=== PATIENT | female | born 1950 | race Caucasian/White ===

== ENCOUNTER 2022-08-19 01:40 | Day surgery (SDC) | payer MEDICARE, SELFPAY ==
[2022-08-09 13:46] VITALS: BMI 34.1
--- NOTE | 2022-08-18 14:57 | PM.HPGS ---
History of Present Illness History of Present Illness Consent: Risks, benefits, and alternatives have been discussed and questions answered. Patient agrees to proceed with procedure. Chief complaint: neoplasm screening, dyspahgia Narrative: Jocelyne Juan is a 72 year old female Referred for investigation of dysphagia and for colon cancer screening. Her last colonoscopy was 11 years ago. She has a history of having a Schatzki's ring which was last dilated about 6 years ago. Review of Systems Review of Systems: All systems reviewed & are unremarkable except as noted in HPI and below PMFSH Surgical History Surgical History H/O knee surgery Family History Family History Sibling Family history of kidney disease Father Family history of diabetes mellitus in first degree relative Patient's father is Acute myocardial infarction Mother Family history of lymphoma Patient's mother is in good health, Onset Age: 86 Social History Social History Smoking status: Never smoker Second hand tobacco smoke exposure: No Alcohol intake: never Living arrangements: with family Meds Home Medications and Allergies Home Medications Medication Instructions Recorded Confirmed Type calcium carbonate 600 mg calcium 600 mg PO DAILY 09/18/20 08/19/22 History (1,500 mg) tablet cholecalciferol (vitamin D3) 25 25 mcg PO DAILY 09/18/20 08/19/22 History mcg (1,000 unit) capsule levothyroxine 137 mcg tablet 137 mcg PO DAILY 09/18/20 08/19/22 History (Levoxyl) multivitamin 1 tablet PO DAILY 09/18/20 08/19/22 History ergocalciferol (vitamin D2) 1,250 50,000 unit PO 3XW #18 caps 04/12/21 08/19/22 Rx mcg (50,000 unit) capsule pantoprazole 40 mg tablet,delayed 40 mg PO QAM #90 tabs 02/17/22 08/19/22 Rx release lisinopril 20 mg tablet 20 mg PO DAILY #90 tabs 05/13/22 08/19/22 Rx Allergies Allergy/AdvReac Type Severity Reaction Status Date / Time No Known Allergies Allergy Verified 08/19/22 07:00 Exam Const: General: alert Orientation/consciousness: patient oriented x3 Resp: Auscultation: clear to auscultation bilaterally Cardio: Rhythm: regular rhythm GI: GI Palp: Yes Soft to palpation and No Tenderness to palpation present (GI) Neuro: General: patient oriented x3 Assessment and Plan Assessment and plan (1) Dysphagia: Code(s): R13.10 - Dysphagia, unspecified Status: Acute Assessment and Plan: EGD with possible biopsy or dilatation or cautery. (2) Colon cancer screening: Code(s): Z12.11 - Encounter for screening for malignant neoplasm of colon Status: Acute Assessment and Plan: Colonoscopy with possible biopsy or polypectomy or cautery or injection of substances.
[2022-08-19 07:02] VITALS: BP 153/78; PULSE 92; RESP 18; TEMP 36.7; O2SAT 95; BMI 38.0
[2022-08-19] MEDS: LACTATED RINGERS 1,000 ML 150 ML IV CONT (07:33)
--- NOTE | 2022-08-19 07:41 | P.PNAN_ITS ---
Anes - Initial Pre Proc Eval Procedure: Operation Date: 08/19/22 08:00 Proposed Procedures p Esophagogastroduodenoscopy&Screen Colon - Natan Costa MD Date/Time: 08/19/22 07:41 Surgeon: Natan Costa MD Pre Op Diagnosis: neoplasm screening, dyspahgia Patient Data Age: 72 Gender: F Height: 1.57 m Weight: 94.3 kg Last Vital Signs Temp 98.0 F 08/19/22 07:02 Pulse 92 08/19/22 07:02 Resp 18 08/19/22 07:02 BP 153/78 H 08/19/22 07:02 Pulse Ox 95 08/19/22 07:02 Allergies Allergy/AdvReac Type Severity Reaction Status Date / Time No Known Allergies Allergy Verified 08/19/22 07:00 Home Medications Medication Instructions Recorded Confirmed Type calcium carbonate 600 mg calcium 600 mg PO DAILY 09/18/20 08/19/22 History (1,500 mg) tablet cholecalciferol (vitamin D3) 25 25 mcg PO DAILY 09/18/20 08/19/22 History mcg (1,000 unit) capsule levothyroxine 137 mcg tablet 137 mcg PO DAILY 09/18/20 08/19/22 History (Levoxyl) multivitamin 1 tablet PO DAILY 09/18/20 08/19/22 History ergocalciferol (vitamin D2) 1,250 50,000 unit PO 3XW #18 caps 04/12/21 08/19/22 Rx mcg (50,000 unit) capsule pantoprazole 40 mg tablet,delayed 40 mg PO QAM #90 tabs 02/17/22 08/19/22 Rx release lisinopril 20 mg tablet 20 mg PO DAILY #90 tabs 05/13/22 08/19/22 Rx Patient hx anesthesia problems: none Family hx anesthesia problems: none Results Review: All pre-operative results and documents have been reviewed as part of the pre- operative evaluation. [facility] Surgical History Surgical History H/O knee surgery Family History Family History Sibling Family history of kidney disease Father Family history of diabetes mellitus in first degree relative Patient's father is Acute myocardial infarction Mother Family history of lymphoma Patient's mother is in good health, Onset Age: 86 Social History Social History Smoking status: Never smoker Second hand tobacco smoke exposure: No Alcohol intake: never Living arrangements: with family Anes - Evdaina Final PreProcedure Day of Procedure 08/19/22 07:41 Patient weight: obese Heart: regular rate and rhythm Lungs: clear to auscultation Airway: Mallampati scale class II Neurological: alert and oriented Last oral intake: >/= 8 hours ASA classification: III Emergent: no Anesthetic plan: proceed Anesthesia type and monitoring: general GIVS and standard monitoring Results Review: All pre-operative results and documents have been reviewed as part of the pre- operative evaluation. Informed Consent: The patient's anesthetic plan and its attendant risks and benefits were discussed with the patient/family/POA. Questions were solicited and answers provided to the satisfaction of the patient/family/POA.
--- NOTE | 2022-08-19 08:19 | SUR.OPER ---
EGD ended at 811. Colonoscopy started at 818.
[2022-08-19] MEDS: SIMETHICONE ORAL SUSPENSION 20 MG/0.3 ML 30 ML BOTTLE 0.6 ML IRRIGATION (08:24)
[2022-08-19 08:32] VITALS: BP 144/73; PULSE 85; RESP 21; O2SAT 100
[2022-08-19 08:42] VITALS: BP 146/82; PULSE 77; RESP 24; O2SAT 95
[2022-08-19 08:52] VITALS: BP 150/61; PULSE 68; RESP 21; O2SAT 98
== END 2022-08-19 09:04 | disposition home or self-care (01) ==
PROVIDERS: PCP Internal Medicine; Visit Provider Internal Medicine Gastroenterology
PROC: 0DJ08ZZ Inspection of Upper Intestinal Tract, Via Natural or Artificial Opening Endoscopic (ICD-10-PCS; CPT 43235; principal; 2022-08-19 08:00)
DX: Z12.11 Encounter for screening for malignant neoplasm of colon (principal); R13.10 Dysphagia, unspecified; K22.2 Esophageal obstruction; K44.9 Diaphragmatic hernia without obstruction or gangrene; K57.30 Diverticulosis of large intestine without perforation or abscess without bleeding
CPT/HCPCS: 43239; 43249; G0121; 88305; J2704; J7120

== ENCOUNTER 2023-01-12 08:02 | Day surgery (SDC) | payer MEDICARE, SELFPAY ==
[2022-11-29 13:29] VITALS: BMI 38.0
--- NOTE | 2023-01-11 11:57 | WPDANESEPPF ---
Anes - Initial Pre Proc Eval Procedure: Operation Date: 01/12/23 09:30 Proposed Procedures p Esophagogastroduodenoscopy - Natan Costa MD Date/Time: 01/11/23 11:57 Surgeon: Natan Costa MD Pre Op Diagnosis: Dysphagia Patient Data Age: 72 Gender: F Height: 1.57 m Weight: 93.894 kg Allergies Allergy/AdvReac Type Severity Reaction Status Date / Time No Known Allergies Allergy Verified 01/03/23 09:49 Home Medications Medication Instructions Recorded Confirmed Type calcium carbonate 600 mg calcium 600 mg PO DAILY 09/18/20 01/03/23 History (1,500 mg) tablet cholecalciferol (vitamin D3) 25 25 mcg PO DAILY 09/18/20 01/03/23 History mcg (1,000 unit) capsule levothyroxine 137 mcg tablet 137 mcg PO DAILY 09/18/20 01/03/23 History (Levoxyl) multivitamin 1 tablet PO DAILY 09/18/20 01/03/23 History lisinopril 20 mg tablet 20 mg PO DAILY #90 tabs 10/27/22 01/03/23 Rx pantoprazole 40 mg tablet,delayed 40 mg PO QAM #30 tabs 12/02/22 01/03/23 Rx release Patient hx anesthesia problems: none Family hx anesthesia problems: none Results Review: All pre-operative results and documents have been reviewed as part of the pre-operative evaluation. [facility] Past Medical History Medical History (Updated 01/11/23 @ 11:58 by Ronnell Holguin MD) Esophageal reflux disease Essential (primary) hypertension Obesity Surgical History Surgical History H/O knee surgery Family History Family History Sibling Family history of kidney disease Father Family history of diabetes mellitus in first degree relative Patient's father is Acute myocardial infarction Mother Family history of lymphoma Patient's mother is in good health, Onset Age: 86 Social History Social History (Updated 01/03/23 @ 09:49 by Cortes Gutiérrez MA) Smoking status: Never smoker Second hand tobacco smoke exposure: No Alcohol intake: never Substance use: never Substance use type: does not use Lack of Transportation: No Lack of Food: Never True Current Housing: I Have Housing Concerned About Future Housing: No Difficulty Paying Gas/Electric Bills: No Difficulty Paying for Meds: No Currently Unemployed: No Education: Bachelor's Degree Difficulty w/ Childcare or Family Care: No Living arrangements: with family Spiritual care concerns: No Anes - Eval Final PreProcedure Day of Procedure 01/11/23 11:57 Patient weight: obese Heart: regular rate and rhythm Lungs: clear to auscultation Airway: Mallampati scale class II Neurological: alert and oriented Last oral intake: >/= 8 hours ASA classification: III Emergent: no Anesthetic plan: proceed Anesthesia type and monitoring: general GIVS and standard monitoring Results Review: All pre-operative results and documents have been reviewed as part of the pre-operative evaluation. Informed Consent: The patient's anesthetic plan and its attendant risks and benefits were discussed with the patient/family/POA. Questions were solicited and answers provided to the satisfaction of the patient/family/POA.
--- NOTE | 2023-01-11 12:10 | PM.HPGS ---
History of Present Illness History of Present Illness Consent: Risks, benefits, and alternatives have been discussed and questions answered. Patient agrees to proceed with procedure. Chief complaint: Dysphagia Narrative: Jocelyne Juan is a 72 year old female GI for solid food. Five months ago she had an EGD that revealed severe stricture at the gastroesophageal junction. It was dilated then up to 16.5 mm. Although improved, she is still having symptoms. Review of Systems Review of Systems: All systems reviewed & are unremarkable except as noted in HPI and below PMFSH Past Medical History Medical History Esophageal reflux disease Essential (primary) hypertension Obesity Surgical History Surgical History H/O knee surgery Family History Family History Sibling Family history of kidney disease Father Family history of diabetes mellitus in first degree relative Patient's father is Acute myocardial infarction Mother Family history of lymphoma Patient's mother is in good health, Onset Age: 86 Social History Social History (Updated 01/03/23 @ 09:49 by Cortes Gutiérrez MA) Smoking status: Never smoker Second hand tobacco smoke exposure: No Alcohol intake: never Substance use: never Substance use type: does not use Lack of Transportation: No Lack of Food: Never True Current Housing: I Have Housing Concerned About Future Housing: No Difficulty Paying Gas/Electric Bills: No Difficulty Paying for Meds: No Currently Unemployed: No Education: Bachelor's Degree Difficulty w/ Childcare or Family Care: No Living arrangements: with family Spiritual care concerns: No Meds Home Medications and Allergies Home Medications Medication Instructions Recorded Confirmed Type calcium carbonate 600 mg calcium 600 mg PO DAILY 09/18/20 01/12/23 History (1,500 mg) tablet cholecalciferol (vitamin D3) 25 25 mcg PO DAILY 09/18/20 01/12/23 History mcg (1,000 unit) capsule levothyroxine 137 mcg tablet 137 mcg PO DAILY 09/18/20 01/12/23 History (Levoxyl) multivitamin 1 tablet PO DAILY 09/18/20 01/12/23 History lisinopril 20 mg tablet 20 mg PO DAILY #90 tabs 10/27/22 01/12/23 Rx pantoprazole 40 mg tablet,delayed 40 mg PO QAM #30 tabs 12/02/22 01/12/23 Rx release Allergies Allergy/AdvReac Type Severity Reaction Status Date / Time No Known Allergies Allergy Verified 01/12/23 09:02 Exam Const: General: alert Orientation/consciousness: patient oriented x3 Resp: Auscultation: clear to auscultation bilaterally Cardio: Rhythm: regular rhythm GI: GI Palp: Yes Soft to palpation and No Tenderness to palpation present (GI) Neuro: General: patient oriented x3 Assessment and Plan Assessment and plan (1) Dysphagia: Code(s): R13.10 - Dysphagia, unspecified Status: Acute Assessment and Plan: EGD with possible biopsy or dilatation or cautery.
[2023-01-12 08:35] VITALS: BP 147/75; PULSE 74; RESP 20; TEMP 36.7; O2SAT 99
[2023-01-12] MEDS: LACTATED RINGERS 1,000 ML 150 ML IV CONT (09:06)
[2023-01-12 10:00] VITALS: BP 122/53; PULSE 77; RESP 15; O2SAT 95
[2023-01-12 10:10] VITALS: BP 116/58; PULSE 64; RESP 15; O2SAT 98
[2023-01-12 10:20] VITALS: BP 132/69; PULSE 59; RESP 14; O2SAT 100
--- NOTE | 2023-01-24 08:30 | WPDANESPN ---
Anes - Prog Note Post-Op Date/Time: 01/24/23 08:30 Cardiovascular status: normal Respiratory status: normal Airway patency: baseline Mental status: baseline Post-Op hydration status: normal Vital Signs: Last Vital Signs Temp 36.7 C 01/12/23 08:35 Pulse 59 L 01/12/23 10:20 Resp 14 01/12/23 10:20 BP 132/69 01/12/23 10:20 Pulse Ox 100 01/12/23 10:20 O2 Del Method Room Air 01/12/23 10:20 Pain Score (VAS): 0 Post-procedural complaints: none Patient Feedback: Patient satisfied with anesthetic care.
== END 2023-01-12 10:40 | disposition home or self-care (01) ==
PROVIDERS: PCP Internal Medicine; Visit Provider Internal Medicine Gastroenterology
PROC: 0DJ08ZZ Inspection of Upper Intestinal Tract, Via Natural or Artificial Opening Endoscopic (ICD-10-PCS; CPT 43235; principal; 2023-01-12 09:30)
DX: R13.10 Dysphagia, unspecified (principal)
CPT/HCPCS: 43249

== ENCOUNTER 2023-01-16 08:15 | Outpatient (CLI) | payer MEDICARE, SELFPAY ==
--- NOTE | ~2023-01-16 | MR_ITS ---
EXAMINATION: MR lumbar spine wo con DATE: 01/16/2023 09:48 INDICATION: Back pain. Failed back surgery. TECHNIQUE: Magnetic resonance imaging (MRI) of the lumbar spine was performed without intravenous con trast. Sequences included sagittal T2-weighted FSE, sagittal T2-weighted FS FSE, sagittal T1-weighted FSE, and axial T2-weighted FSE. COMPARISON: None FINDINGS: There is 6 degrees levocurvature of lumbar spine. There is 3 mm retrolisthesis of L2 on L3. There are changes of anterior and posterior fusion procedures at L4-L5 with interbody devices and pe dicle screws. There is mild chronic anterior wedging of T11 and T12 vertebral bodies. There is mildly decreased disc height at L2-L3 and L3-L4. The distal spinal cord signal intensity is normal. The con us medullaris is at L1-L2. The following disc levels are specifically discussed: L1-L2: The disc does not extend beyond the endplate margin. There is severe bilateral facet joint ost eoarthritis. There is mild bilateral neural foraminal stenosis. There is no central canal stenosis. L2-L3: The disc is bulging and has an annular fissure. There is severe bilateral facet joint osteoart hritis. There is moderate bilateral neural foraminal stenosis. There is mild central canal stenosis. L3-L4: The disc is bulging. There is ankylosis of the facet joints with severe hypertrophy. There is mild bilateral neural foraminal stenosis. There is no central canal stenosis. L4-L5: There is no facet joint hypertrophy. There is mild bilateral neural foraminal stenosis. There is no central canal stenosis. L5-S1: The disc does not extend beyond the endplate margin. There is severe bilateral facet joint ost eoarthritis. There is mild bilateral neural foraminal stenosis. There is no central canal stenosis. IMPRESSION: 1. Moderate lumbar spondylosis. 2. Anterior and posterior fusion procedures at L4-L5. Reviewed, dictated and finalized at location A.
== END 2023-01-16 08:16 | disposition home or self-care (01) ==
PROVIDERS: PCP Internal Medicine; Visit Provider Internal Medicine
DX: M47.896 Other spondylosis, lumbar region (principal); Z98.1 Arthrodesis status
CPT/HCPCS: 72148

== ENCOUNTER 2024-05-23 14:41 | Emergency (ER) | payer MEDICARE, SELFPAY ==
--- NOTE | ~2024-05-23 | XR_ITS ---
EXAMINATION: XR chest 2V DATE: 05/23/2024 17:12 INDICATION: Shortness of breath. TECHNIQUE: Frontal and lateral views of the chest were obtained. COMPARISON: None. FINDINGS: There is eventration of anterior right hemidiaphragm. No pneumonia, pleural effusion, or pn eumothorax. Cardiomegaly is noted. IMPRESSION: 1. Cardiomegaly. Reviewed, dictated and finalized at location A. IMPRESSION: 1. Cardiomegaly.
[2024-05-23 14:44] VITALS: BP 146/61; PULSE 89; RESP 18; TEMP 36.4; O2SAT 97
--- NOTE | 2024-05-23 16:45 | ECG_ITS ---
Test Date: 2024-05-23 18:48:35 Measurements Intervals Cades Rate: 77 P: -1 CA: 162 QRS: -16 QRSD: 96 T: 15 QT: 346 QTc: 393 Interpretive Statements SINUS RHYTHM WITH OCCASIONAL SUPRAVENTRICULAR PREMATURE COMPLEXES LOW QRS VOLTAGE IN PRECORDIAL LEADS PATTERN CONSISTENT WITH PULMONARY DISEASE LEFT VENTRICULAR HYPERTROPHY BORDERLINE T WAVE ABNORMALITY- ANTEROLAT/INF LEADS BORDERLINE ECG No previous ECG available for comparison Electronically Signed On 05-23-2024 19:28:27 CDT by Tom Brunson D.O.
--- NOTE | 2024-05-23 16:47 | ED.SOB ---
HPI - SOB/Dyspnea General Chief Complaint: Shortness of Breath/Dyspnea Stated Complaint: SOB, covid+ since last night Time Seen by Provider: 05/23/24 16:48 Focused HPI: This is a 73 year old female that presents to the ER for shortness of breath. Ongoing over the last couple of days. Reports cough, congestion. She tested positive for COVID on a home test. Denies chest pain. GENERAL: Well-appearing, well-nourished, and in no acute distress. HEAD: Normocephalic, atraumatic. CHEST: Clear to auscultation. ?No respiratory distress. HEART: Regular rate and rhythm.? NEURO: ?Alert and oriented x3. Patient screened in triage and initial orders placed.? ?Additional care and disposition to be based upon?diagnostic testing and treatment. Related Data Home Medications Medication Instructions Recorded Confirmed calcium carbonate 600 mg PO DAILY 09/18/20 04/10/24 cholecalciferol (vitamin D3) 25 25 mcg PO DAILY 09/18/20 04/10/24 mcg (1,000 unit) capsule levothyroxine 137 mcg tablet 137 mcg PO DAILY 09/18/20 04/10/24 (Levoxyl) multivitamin 1 tablet PO DAILY 09/18/20 04/10/24 Allergies Allergy/AdvReac Type Severity Reaction Status Date / Time No Known Allergies Allergy Verified 05/23/24 14:42 PMFSH Past Medical History Medical History Esophageal reflux disease Essential (primary) hypertension Obesity Surgical History Surgical History H/O knee surgery Family History Family History Sibling Family history of kidney disease Father Family history of diabetes mellitus in first degree relative Patient's father is Acute myocardial infarction Mother Family history of lymphoma Patient's mother is in good health, Onset Age: 86 Social History Social History Smoking status: Never smoker Second hand tobacco smoke exposure: No Alcohol intake: never Substance use: never Substance use type: does not use Lack of Transportation: No Lack of Food: Never True Current Housing: I Have Housing Concerned About Future Housing: No Difficulty Paying Gas/Electric Bills: No Difficulty Paying for Meds: No Currently Unemployed: No Education: Bachelor's Degree Difficulty w/ Childcare or Family Care: No Living arrangements: with family Spiritual care concerns: No Course Vital Signs Vital signs: Vital Signs Temperature 97.6 F 05/23/24 14:44 Pulse Rate 89 05/23/24 14:44 Respiratory Rate 18 05/23/24 14:44 Blood Pressure 146/61 H 05/23/24 14:44 Pulse Oximetry 97 05/23/24 14:44 Oxygen Delivery Room Air 05/23/24 14:44 Temperature 98.7 F 05/23/24 18:39 Pulse Rate 79 05/23/24 18:39 Respiratory Rate 18 05/23/24 14:44 Blood Pressure 116/67 05/23/24 18:39 Pulse Oximetry 95 05/23/24 18:39 Oxygen Delivery Room Air 05/23/24 14:44 MDM - SOB/Dyspnea MDM Narrative Medical decision making narrative: Patient left after medical screening exam and initial workup and before further evaluation or management Lab Data 05/23/24 18:41 05/23/24 18:41 Labs: Lab Results 05/23/24 Range/Units 18:41 WBC 6.5 (4.5-10.0) K/mm3 RBC 4.41 (4.2-5.4) M/mm3 Hgb 12.2 (12.0-15.0) g/dL Hct 38.7 (37.0-47.0) % MCV 87.8 (80-100) fl MCH 27.7 (26-34) pg MCHC 31.5 L (32-36) g/dl RDW 14.5 (11.5-14.5) % Plt Count 202 (150-375) k/mm3 MPV 9.7 (7.4-10.4) fl Immature Gran % (Auto) 0.3 (0-0.5) % Neut % (Auto) 76.7 H (45.5-73.1) % Lymph % (Auto) 12.6 L (18.3-44.2) % Delta % (Auto) 9.6 H (2.6-8.5) % Eos % (Auto) 0.2 (0-4.4) % Baso % (Auto) 0.6 (0.2-1.2) % Lymph # (Auto) 0.82 L (0.9-3.2) K/mm3 Delta # (Auto) 0.6 (0.1-0.6) K/mm3 Eos # (Auto) 0.0 (0-0.3) K/mm3 Baso # (
[2024-05-23 18:39] VITALS: BP 116/67; PULSE 79; TEMP 37.1; O2SAT 95
[2024-05-23 18:57] LABS: Basophils Percent Auto 0.6 % (0.2-1.2); Eosinophils Percent Auto 0.2 % (0-4.4); Hematocrit 38.7 % (37.0-47.0); Hemoglobin 12.2 g/dL (12.0-15.0); Immature Granulocyte Absolute 0.02 K/mm3 (0.00-0.031); Immature Granulocyte Percent A 0.3 % (0-0.5); Lymphocytes Absolute Auto 0.82 K/mm3 (0.9-3.2); Lymphocytes Percent Auto 12.6 % (18.3-44.2); Mean Corpuscular HGB Conc 31.5 g/dl (32-36); Mean Corpuscular Hemoglobin 27.7 pg (26-34); Mean Corpuscular Volume 87.8 fl (80-100); Mean Platelet Volume 9.7 fl (7.4-10.4); Monocytes Absolute Auto 0.6 K/mm3 (0.1-0.6); Monocytes Percent Auto 9.6 % (2.6-8.5); Neutrophils Percent Auto 76.7 % (45.5-73.1); Platelet Count Result 202 k/mm3 (150-375); Red Blood Count 4.41 M/mm3 (4.2-5.4); Red Cell Distribution Width 14.5 % (11.5-14.5); White Blood Count 6.5 K/mm3 (4.5-10.0)
[2024-05-23 19:06] LABS: Alanine Aminotransferase 23 U/L (6-35); Albumin Level 4.2 g/dL (3.5-5.1); Alkaline Phosphatase 80 U/L (38-126); Anion Gap 9 mmol/L (4-12); Aspartate Amino Transferase 34 U/L (14-36); Bilirubin,Total 0.6 mg/dL (0.2-1.3); Blood Urea Nitrogen 12 mg/dL (7-17); Calcium 8.7 mg/dL (8.4-10.2); Carbon Dioxide 28 mmol/L (22-30); Chloride 98 mmol/L (98-107); Estimated Glomerular Filt Rate > 60; Glucose 114 mg/dL (65-110); Sodium 135 mmol/L (137-145)
[2024-05-23 19:14] LABS: NT Pro B Type Natriuretic Pept 746 pg/mL (19.9-100)
[2024-05-23 19:21] LABS: INR 1.1; Partial Thromboplastin Time 32.7 Seconds (22.3-36.8); Prothrombin Time 14.2 Seconds (11.1-14.7)
[2024-05-23 19:32] LABS: Influenza A QL RT-PCR Negative (Negative); Influenza B QL RT-PCR Negative (Negative); RSV RNA, RT-PCR Negative (Negative); SARS-CoV-2 RNA PCR Positive (Negative)
== END 2024-05-23 19:00 | disposition left against medical advice (07) ==
PROVIDERS: Emergency Provider Physician Assistant; PCP Internal Medicine
DX: U07.1 COVID-19 (principal); I10 Essential (primary) hypertension; E66.9 Obesity, unspecified; Z68.41 Body mass index [BMI] 40.0-44.9, adult; K21.9 Gastro-esophageal reflux disease without esophagitis; Z79.899 Other long term (current) drug therapy
CPT/HCPCS: 36415; 71046; 80053; 83880; 85025; 85610; 85730; 87637; 93005; 99284